=== PATIENT | male | born 1995 | race Caucasian/White ===

== ENCOUNTER 2024-08-27 12:44 | Emergency (ER) | payer MEDICAID ==
[~2024-08-27] VITALS: Ht 182.9 cm; Wt 97.1 kg
[2024-08-27 13:09] LABS: ALBUMIN 4.2 g/dL (3.4-5.0); ALBUMIN/GLOBULIN RATIO 1.02 (1.1-2.4); ANION GAP 17.4 (7-21); BILIRUBIN, TOTAL 0.6 mg/dL (0.2-1.0); BUN/CREATININE RATIO 15.15 (6.0-28.6); CALCIUM 9.6 mg/dL (8.5-10.1); CREATININE, SERUM 0.99 mg/dL (0.70-1.30); POTASSIUM 4.4 mmol/L (3.5-5.1); PROTEIN, TOTAL 8.3 g/dL (6.4-8.2)
[2024-08-27] MEDS ORDERED: ondansetron HCL 4 MG/2 ML VIAL IV PRN (13:15)
[2024-08-27] MEDS ORDERED: LORazepam 2 MG/ML VIAL IV ONE (13:15)
[2024-08-27] MEDS ORDERED: ondansetron HCL 4 MG/2 ML VIAL IV ONE (13:15)
[2024-08-27] MEDS ORDERED: ATIVAN1 MG PO (14:11)
[2024-08-27] MEDS ORDERED: ONDANSETRON HCL4 MG PO (14:11)
[2024-08-27 15:00] VITALS: BP 110/57
--- NOTE | 2024-08-28 13:01 | EKG ---
[facility] [address] [facility] [place], [place] [address] Signed Normal sinus rhythm Normal ECG No previous ECGs available Confirmed by Ry Bullard DO ([id number]) on 08/28/2024 1:00:46 PM Electronically Signed By: RY BULLARD DO 08/28/24 1301 PATIENT NAME: LYNDSEY SMITHARY Electrocardiogram DATE OF : [birth year] PHYSICIAN: RY BULLARD DO REPORT #: [id number] REPORT IS CONFIDENTIAL AND NOT TO BE RELEASED WITHOUT AUTHORIZATION
== END 2024-08-27 15:00 | disposition home or self-care (01) ==
LOC: ED 12:44
PROVIDERS: Emergency Medicine
DX: R56.9 Unspecified convulsions (principal); Z21 Asymptomatic human immunodeficiency virus [HIV] infection status
CPT/HCPCS: 36415; 80053; 93005; 93010; 96374; 96375; 99284-25; J2060; J2405